=== PATIENT | female | born 1950 | race Caucasian/White ===

== ENCOUNTER → 2016-08-30 | Outpatient (CLI) | payer BC ==
[~2016-08-30] MED LIST: CHOL100027 PO; GABA-112 PO; TURM1CAP4 PO
[2016-08-30 10:17] LABS: BASO % 0.4 %; BASO ABS # 0.01 K/uL (0-0.2); COMPLETE YES; EOS % 4.7 %; HEMATOCRIT 38.4 % (37-47); LYMPH % 28.5 %; LYMPH ABS # 0.79 K/uL (1.2-3.4); MEAN CELL VOLUME 88.7 fL (80-100); MEAN CORPUSCULAR HEMOGLOBIN 29.3 pg (25-34); MEAN CORPUSCULAR HGB CONC 33.1 g/dl (32-36); MEAN PLATELET VOLUME 8.7 fL (7.4-10.4); MONO % 16.2 %; NEUT % 50.2 %; PLATELET COUNT 255 K/uL (130-400); RED BLOOD COUNT 4.33 M/uL (4.2-5.4); WHITE BLOOD COUNT 2.77 K/uL (4.8-10.8)
[2016-08-30 10:50] LABS: ESTIMATED AVERAGE GLUCOSE 114 mg/dl; HA1C FLAG Normal (Normal)
[2016-08-30 11:43] LABS: ALT/SGPT 39 U/L (12-78); AST/SGOT 36 U/L (15-37); BLOOD UREA NITROGEN 18 mg/dl (7-18); BUN/CREATININE RATIO 18.9 (10-20); CALCIUM 8.8 mg/dl (8.5-10.1); CARBON DIOXIDE 22 mmol/L (21-32); CHLORIDE 107 mmol/L (98-107); CREATININE 0.93 mg/dl (0.60-1.20); GLUCOSE 83 mg/dl (70-99); POTASSIUM 3.8 mmol/L (3.5-5.1); SODIUM 139 mmol/L (136-145)
[2016-08-30 11:54] LABS: ALB/GLOB RATIO 0.9 (0.9-2); ALKALINE PHOSPHATASE 117 U/L (45-117); CHOLESTEROL 140 mg/dl (0-200); CHOLESTEROL/HDL RATIO 1.9; HDL CHOLESTEROL 72 mg/dl; LDL CHOLESTEROL CALCULATED 59 mg/dl; TRIGLYCERIDES 44 mg/dl (0-150); VERY LOW DENSITY LIPOPROT CALC 9 mg/dl
[2016-08-30 12:15] LABS: URINE APPEARANCE CLEAR (CLEAR); URINE BILIRUBIN NEG (NEG); URINE COLOR YELLOW; URINE EPITHELIAL CELL AUTO 20-30 /lpf (0-5); URINE NITRITE NEG (NEG); URINE SPECIFIC GRAVITY 1.013 (1.000-1.030); UROBILINOGEN NEG (NEG); ZZUR CULT IF INDIC CLEAN CATCH NO
[2016-08-30 12:17] LABS: MANUAL MICROSCOPIC REQUIRED? NO; REVIEW REQ? NO
--- NOTE | 2016-09-03 13:28 | CODING QUERY MEDICAL NECESSITY ---
SUPPORTING DIAGNOSIS NEEDED A supporting diagnosis is required for the test/procedure performed on this patient in order for us to be reimbursed by the patient's insurance. Please provide a supporting diagnosis for the following test/procedure listed below next to the test name along with your signature. *If there is no additional diagnosis for this patient that would support the following test/procedure please document that below next to the test/procedure. Test(s)/Procedure(s) that require a supporting diagnosis: DS 08/30 * Hba1c DIAGNOSIS: * TSH DIAGNOSIS: Provider Signature: Date: Thank you Josie Holliday Health Information Management Once completed, please kindly fax back to [phone] For questions please call [phone]
== END | disposition home or self-care (01) ==
LOC: C.LAB1850 09:03
PROVIDERS: ATTEND Internal Medicine
DX: D72.819 Decreased white blood cell count, unspecified (principal); E55.9 Vitamin D deficiency, unspecified; K31.84 Gastroparesis; Z13.6 Encounter for screening for cardiovascular disorders

== ENCOUNTER → 2016-09-20 | Outpatient (CLI) | payer BC | END | disposition home or self-care (01) | LOC: C.MAMM 15:53 | PROVIDERS: ATTEND Internal Medicine | DX: Z78.0 Asymptomatic menopausal state (principal); M85.89 Other specified disorders of bone density and structure, multiple sites ==

== ENCOUNTER → 2016-09-22 | Outpatient (CLI) | payer BC ==
[2016-09-27 08:17] LABS: ALBUMIN 4.4 G/DL (3.8-4.8); ALBUMIN % 17.23 %; ALPHA-2-GLOBULIN % 25.69 %; BETA GLOBULIN % 23.03 %; CREATININE UR 28 MG/DL (20-320); GAMMA GLOBULIN 1.6 G/DL (0.8-1.7); MONOCLONAL PROTEIN BAND 1 0.5 G/DL (NOT DETECTED); TOTAL PROTEIN 7.6 G/DL (6.2-8.3)
== END | disposition home or self-care (01) ==
LOC: C.LABBC 10:19
PROVIDERS: ATTEND Internal Medicine
DX: R77.1 Abnormality of globulin (principal)

== ENCOUNTER → 2016-09-29 | Outpatient (CLI) | payer BC | END | disposition home or self-care (01) | LOC: C.LABBC 11:34 | PROVIDERS: ATTEND Internal Medicine | DX: R79.9 Abnormal finding of blood chemistry, unspecified (principal) ==

== ENCOUNTER → 2017-02-17 | Outpatient (CLI) | payer BC ==
--- NOTE | 2017-02-18 14:11 | MAMMOGRAPHY REPORT ---
BILATERAL DIGITAL SCREENING MAMMOGRAM WITH CAD: 02/17/2017 CLINICAL HISTORY: Routine screening. Patient has no complaints. TECHNIQUE: Current study was also evaluated with a Computer Aided Detection (CAD) system. Bilateral CC and MLO views were obtained. COMPARISON: Comparison is made to exams dated: 01/13/2016 mammogram, 01/02/2015 mammogram, 10/26/2013 ma mmogram, 10/24/2012 mammogram, 10/19/2011 mammogram, and 10/13/2010 mammogram - [facility] ter. BREAST COMPOSITION: The tissue of both breasts is heterogeneously dense, which may obscure small mas ses. FINDINGS: No suspicious masses, calcifications, or areas of architectural distortion are noted in ei ther breast. There has been no significant interval change compared to prior exams. IMPRESSION: ACR BI-RADS CATEGORY 1: NEGATIVE There is no mammographic evidence of malignancy. A 1 year screening mammogram is recommended. The pa tient will receive written notification of the results. Approximately 10% of breast cancers are not detected with mammography. A negative mammographic report should not delay biopsy if a clinically suggestive mass is present. Jo Ann Romero M.D. ah/:02/17/2017 15:37:04 [employer] Operator: Ashley HERRERA(Lani)(M), [facility] letter sent: Normal 1/2 BI-RADS Code: ACR BI-RADS Category 1: Negative
== END | disposition home or self-care (01) ==
LOC: C.MAMM 13:06
PROVIDERS: ATTEND Obstetrics & Gynecology
DX: Z12.31 Encounter for screening mammogram for malignant neoplasm of breast (principal)

== ENCOUNTER → 2017-04-21 | Outpatient (CLI) | payer BC | END | disposition home or self-care (01) | LOC: C.PAPS 09:30 | PROVIDERS: ATTEND Obstetrics & Gynecology | DX: Z01.419 Encounter for gynecological examination (general) (routine) without abnormal findings (principal) ==

== ENCOUNTER 2024-04-20 14:19 | Observation (INO) ==
--- NOTE | 2024-04-20 14:45 | Cardiology Consultation ---
Date of Consultation April 20, 2024 Assessment & Plan (1) Hyperbilirubinemia: (2) Transaminitis: (3) Paroxysmal A-fib: Plan Patient sent to ER due to elevated LFTs; elevated bilirubin. Recent possible viral illness, however viral panel was negative earlier this week. Recent diagnosis of PAF, converting to NSR on 04/16. Continue metoprolol 50 mg daily Currently NSR. It is very unlikely the metoprolol is causing her elevated LFT's. She has been on lower dose metoprolol for 3 months without issues. Continue Eliquis 5 mg BID Labs pending. Consider repeat imaging of her abdomen. GI consult recommended Further recommendations pending review of above test results. Case discussed with Dr. Decker I spent a total of 45 minutes on the date of service in preparation, delivery, and documentation of the care provided to this patient, excluding any time spent in the performance of separately billed services. Mercedes Kim PA-C Department of Cardiology, [facility] This chart was completed in part utilizing Speech Voice Recognition Software. Grammatical errors, random word insertions, pronoun errors, and incomplete sentences are an occasional consequence of this system due to software limitations, ambient noise, and hardware issues. Any formal questions or concerns about the content, text, or information contained within the body of this dictation should be directly addressed to the provider for clarification. Supervising Physician Co-Signing Physician Notes Attending attestation: Case reviewed with the advanced practitioner. I have personally performed a history and physical examination on the patient. I have reviewed the advanced practitioner's documentation on the date of service referenced in note, and I agree with, and take responsibility for the plan of care. Subjective:Since recent discharge, patient without prolonged palpitations. She has occasional sensation of irregular heartbeat consistent with her history of premature atrial contractions. EKG performed today confirms the presence of sinus rhythm. Patient without acute complaints, with noted viral illness earlier this week at the time of initial presentation 5 days ago. Exam: General appearance: No acute distress HEENT: Scleral icterus noted Cardiovascular regular rhythm, no murmurs Abdominal exam, nontender Data: EKG performed today reveals sinus rhythm at 72 bpm, corrected QT interval 413 ms, no significant repolarization abnormalities. Impression/ Plan: Abnormal liver function tests Recent diagnosis of paroxysmal atrial fibrillation -It is noted that the patient recently had surgical correction of a cystocele and rectocele performed by urogynecology on 03/23/2024. She describes having taken 975 mg of acetaminophen 3 times per day for approximately 10 days. Last week on Tuesday she took 650 mg of acetaminophen at bedtime. She denies significant alcohol use, and occasional glass of wine or cocktail. Although metoprolol can be indicated in drug-induced hepatitis. I would appear that her abnormal liver tests were present on presentation on 04/16/2024 before the escalation of her metoprolol dose. Would continue Eliquis unless invasive procedure planned. Perhaps her Acetaminophen use is the culprit. CT of the Abd/ pelvic unrevealing etiology of elevated LFTs. Case discussed by phone with Dr Mercedes of emergency medicine. I spent a total of 20 minutes coordinating, documenting, and providing care for this patient excluding time spent in the performance of separately billed services or time spent by another provider. Joel Decker DO History of Present Illness Reason for Consultation: PAF; Palpitations Requesting Physician: ER Attending Physician: Dr. Decker History of Present Illness Patient is a 74 year old female sent to [facility] for elevated liver enzymes. Known to [facility] Cardiology - Josefina Carrasco PA-C Patient evaluated in the ER earlier this week with complaints of flu like symptoms, palpitations. Diagnosed with atrial fibrillation RVR and spontaneously converted to NSR, without conversion pause. Started on Eliquis 5 mg BID. Potassium and magnesium were low and supplemented. Patient had elevated LFT's during ER evaluation. Viral panel negative. Hepatitis evaluation unremarkable. Liver US was negative. Metoprolol increased to 50 mg daily to aid with arrhythmias. Repet LFT's yesterday demonstrated Total Bilirubin of 7.8, AST 63, ALT 128 and Alk phos of 324. For this reason, she was sent back to the ER for evaluation. She notes persistent nausea this week. Water stools at times. No abdominal pain. No chest pain or dyspnea. Rare palpitations. Currently in NSR on EKG Cardiac History includes: Sensed atrial and ventricular ectopy Frequent atrial ectopy, 7.1% burden via February 2024 ambulatory EKG Asymptomatic supraventricular tachycardia New onset atrial fibrillation with rapid ventricular response April 15, 2024 [id number] Score 3 points Hyponatremia, followed by [facility] Allergies Allergy/AdvReac Type Severity Reaction Status Date / Time No Known Drug Allergies Allergy Verified 10/26/23 13:42 Home Medications Medication Instructions Recorded Confirmed Type turmeric 1 cap PO DAILY 06/22/21 04/16/24 History calcium carbonate 1,000 mg PO DAILY 08/04/21 04/16/24 History estradiol 0.01% (0.1 mg/gram) 1 g vaginal 2XWK #42.5 grams 10/17/23 04/16/24 Rx vaginal cream tretinoin 1 applic topical DIRECTED PRN 10/26/23 04/16/24 History Other gabapentin 400 mg capsule 400 mg PO HS #30 caps 03/09/24 04/16/24 Rx Women's 50 Plus Multivitamin 1 tab PO DAILY 04/16/24 04/16/24 History apixaban 5 mg tablet (Eliquis) 5 mg PO BID #60 tabs 04/16/24 Rx gabapentin 100 mg capsule 100 mg PO HS 04/16/24 04/16/24 History metoprolol succinate 25 mg 37.5 mg PO DAILY 04/16/24 04/16/24 History tablet,extended release 24 hr metoprolol succinate 50 mg 50 mg PO QAM 30 days #30 tabs 04/16/24 Rx tablet,extended release 24 hr minoxidil 2.5 mg tablet 1.25 mg PO DAILY 04/16/24 04/16/24 History Patient History Medical History Melanoma Bilateral tinnitus Dermatitis, nummular History of angular cheilitis Onychomycosis of toenail Sensorineural hearing loss (SNHL) of both ears Small bowel obstruction (2015) Pneumonia (2014) Surgical History Hx of colonoscopy Hx of tonsillectomy 1955 Family History Father Suicide Mother Parkinsons disease Uterine cancer Dementia Cervix cancer FHx: allergies Brother Myocardial infarction Tobacco abuse Coronary heart disease Heart disease Sister Coronary heart disease Heart disease Uncle Heart disease Denies family history of Ovarian cancer Prostate cancer Breast cancer Colorectal cancer Social History Smoking Status: Never smoker Second Hand Exposure: No; Do You Dip or Chew Tobacco: No; Hx Alcohol Use: Yes Alcohol type: beer, wine and hard liquor Alcohol Intake Frequency: 4 or More x per/Week Alcohol Intake Frequency Comment: glass of wine daily or cocktail Hx Substance Use: No Preferred Language: Nepali Communication Ability: Effective Visual Impairment: No Limitations Hearing Ability: Normal Beliefs That Will Affect Care: None marital status: Current Living Situation: Spouse current occupational status: retired 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 How many Children do You have: 4 Feels Safe at Home: Yes Childhood Exposure to Second-Hand Smoke: Yes Diet: regular caffeine: Yes during the past year weight has: remained stable Dental Care, Regularly: Yes Physical Activity Frequency: Daily Seatbelt Use: always Sunscreen Use: Yes Review of Systems Review of Systems: All systems reviewed & are unremarkable except as noted in HPI & below Physical Exam Constitutional: WD/WN, vitals as above Eyes: + Scleral icterus Respiratory: normal respiratory effort, lungs clear to auscultation Cardiovascular: RRR, no murmur, no edema Gastrointestinal (Abdomen): normal bowel sounds, soft, nontender, no hepatosplenomegaly Skin: no rashes, warm and dry Neurologic: PERRL, EOMI, accommodation nl, no face palsy, no dysarthria Results & Data Vital Signs (Past 12 Hours) Vital Signs Temp Pulse Resp BP Pulse Ox 04/20/24 14:19 36.6 C 78 18 157/95 H 99 Laboratory Results Labs pending at time of consult Intake and Output 04/19/24 04/20/24 04/20/24 22:59 06:59 14:59 Other: Weight 56 kg Weight Measurement Method Chair Scale Patient Weight 04/21/24 06:59 Weight 56 kg Diagnostic Findings EKG reviewed: NSR, mild T wave inversion in inferior leads Prior data reviewed: Echo report reviewed from 04/16/24: NSR was present during echo Normal LV wall thickness No regional wall motion abnormalities LV systolic function is normal EF 55-60% RV is normal in size Mild TR No pulm hypertension Liver US report reviewed dated 04/16/24: IMPRESSION: Unremarkable right upper quadrant ultrasound. Chest xray report reviewed dated 04/16/24: IMPRESSION: No acute process. EKG reviewed from 04/16: Atrial fibrillation with RVR at 134 bmp T wave abnormality in lateral leads Medications Administered Medications turmeric 1 cap PO DAILY 06/22/21 [History Confirmed 04/16/24] calcium carbonate 1,000 mg PO DAILY 08/04/21 [History Confirmed 04/16/24] estradiol 0.01% (0.1 mg/gram) vaginal cream 1 g vaginal 2XWK #42.5 grams 10/17/23 [Rx Confirmed 04/16/24] tretinoin 1 applic topical DIRECTED PRN Other 10/26/23 [History Confirmed 04/16/24] gabapentin 400 mg capsule 400 mg PO HS #30 caps 03/09/24 [Rx Confirmed 04/16/24] Women's 50 Plus Multivitamin 1 tab PO DAILY 04/16/24 [History Confirmed 04/16/24] apixaban 5 mg tablet (Eliquis) 5 mg PO BID #60 tabs 04/16/24 [Rx] gabapentin 100 mg capsule 100 mg PO HS 04/16/24 [History Confirmed 04/16/24] metoprolol succinate 25 mg tablet,extended release 24 hr 37.5 mg PO DAILY 04/16/24 [History Confirmed 04/16/24] metoprolol succinate 50 mg tablet,extended release 24 hr 50 mg PO QAM 30 days #30 tabs 04/16/24 [Rx] minoxidil 2.5 mg tablet 1.25 mg PO DAILY 04/16/24 [History Confirmed 04/16/24]
[2024-04-20 15:48] LABS: Basophils # (auto) 0.04 K/uL (0.00-0.20); Basophils % (auto) 0.6 %; Eosinophils # (auto) 0.16 K/uL (0.00-0.50); Eosinophils % (auto) 2.3 %; Hematocrit (blood only) 38.3 % (37.0-47.0); Hemoglobin 13.2 g/dl (12.0-16.0); Immature Granulocytes # (auto) 0.02 K/uL (0.01-0.20); Immature Granulocytes % (auto) 0.3 %; Lymphocytes % (auto) 10.2 %; Mean Corpuscular Hemoglobin 31.3 pg (25.0-34.0); Mean Corpuscular Hgb Conc 34.5 g/dL (32.0-36.0); Mean Corpuscular Volume 90.8 fL (80.0-100.0); Mean Platelet Volume 9.1 fL (9.4-12.4); Monocytes # (auto) 0.67 K/uL (0.11-0.59); Monocytes % (auto) 9.8 %; Neutrophils # (auto) 5.27 K/uL (1.40-6.50); Neutrophils % (auto) 76.8 %; Platelet Count 358 K/uL (130-400); RDW Coefficient of Variation 14.2 % (11.5-14.5); RDW Standard Deviation 47.3 fL (36.4-46.3); Red Blood Count 4.22 M/uL (4.20-5.40); White Blood Count 6.86 K/ul (4.8-10.8)
--- NOTE | 2024-04-20 16:02 | Emergency Department Note ---
Impression & Plan Elevated bilirubin, Transaminitis ED Provider Note NAME: CHICHO GIPSON AGE: 74 SEX: F : 1950 ARRIVES VIA: Walk-In INFORMANT: Patient ED PROVIDER(S): Jason Mercedes DO CHIEF COMPLAINT: Jaundice HPI: Patient is a 74-year-old female with a past medical history of A-fib, SVT who presents to the ER for elevated bilirubin which has trending up. Patient notes that she was seen here last week for A-fib. She was discharged and since then she has been having itching and she feels as though she is getting more yellow. She was consequently sent in. She denies any headache or change in vision. No chest pain or shortness of breath. No nausea, vomiting, or diarrhea. No dysuria, urgency, or frequency. No other exacerbating or remitting factors. ADDITIONAL HISTORY OBTAINED: Per HPI Chronic Medical/Social Conditions Affecting Care: Per HPI PAST MEDICAL HISTORY:See Below PAST SURGICAL HISTORY:See Below FAMILY HISTORY:See Below SOCIAL HISTORY:See Below HOME MEDICATIONS:See Below ALLERGIES:See Below VITALS:See Below PHYSICAL EXAMINATION: GENERAL: Sitting up in bed, alert, well appearing, well nourished, no distress, non-toxic EYE EXAM: Scleral icterus OROPHARYNX: no exudate, no erythema, lips, buccal mucosa, and tongue normal and mucous membranes are moist NECK: supple, no nuchal rigidity, no adenopathy, non-tender LUNGS: Clear to auscultation. Normal chest wall mechanics HEART: no murmurs, S1 normal and S2 normal ABDOMEN: abdomen soft, non-tender, normo-active bowel sounds, no masses, no rebound or guarding. BACK: Back is symmetrical on inspection and there is no deformity, no midline tenderness, no CVA tenderness. SKIN: Jaundice UPPER EXTREMITIES: upper extremities are grossly normal. LOWER EXTREMITIES: No pitting edema. NEURO EXAM: Normal sensorium, cranial nerves II-XII grossly intact, normal speech, no gross weakness of arms, no gross weakness of legs. MEDICAL DECISION MAKING: Patient is a 74-year-old female who presents ER for elevated bilirubin. IV was established and blood work was obtained. Labs show no significant leukocytosis or anemia. INR unremarkable. BMP along with LFTs with slightly elevated at 60- 1 15. T. bili at 7.5. Acetaminophen was negative. She was taken 965 3 times a day for 2 weeks in mid March. She has not taken any since then. CT abdomen pelvis showed no acute pathology. Patient was given IV fluids. Discussed the case with the hospitalist as well as Dr. Willson from cardiology as he feels this is not caused by metoprolol and I agree. Do favor this likely viral in nature. Hepatitis panel pending. Discussed case with the hospitalist for further evaluation management treatment. Consults/Care Managements Discussions: Per MDM Triage Nursing notes reviewed. Limited review of prior medical records performed Vital Signs: reviewed and remarkable for HTN Differential diagnosis: Differential diagnoses includes but is not limited to gastritis, peptic ulcer disease, GERD, gallbladder disease, pancreatitis, small bowel obstruction, appendicitis, diverticulitis, hernia, urinary tract infection, torsion, perforation, trauma, infectious. ER treatment provided: See below Diagnostics interpreted by me include EKG and cardiac monitoring as listed below: -Cardiac Monitoring: An order was placed for continuous cardiac monitoring. The monitor shows a rate of 80 with sinus rhythm. -ECG: Sinus rhythm rate of 72 Normal axis No PVCs QTc 413 -Laboratory studies:Interpreted by me as stated above in MDM and shown below. Imaging studies: Xrays: As interpreted by me:none CTs show: CT head and pelvis per my preliminary to rotation showed no obvious bowel obstruction CT head and pelvis per radiology showed no acute pathology Procedures:none Critical Care: None Past Med/Surg History Problem List (Updated 04/20/24 @ 21:47 by Jason Mercedes DO) Transaminitis (Acute) Elevated bilirubin (Acute) Acute hyponatremia (Acute) Hyperbilirubinemia (Acute) Transaminitis (Acute) Atrial fibrillation with rapid ventricular response (Acute) Hypertension Family history of ischemic heart disease Premature atrial contractions SVT (supraventricular tachycardia) New onset atrial fibrillation Transaminitis Paroxysmal A-fib Left knee DJD Talus fracture Navicular fracture of ankle Ulceration, tongue traumatic Aphthous ulcer of tongue Back problem Waldenstrom macroglobulinemia (Acute) Vitamin D deficiency (Acute) Uterovaginal prolapse (Acute) Urethral caruncle (Acute) Scoliosis (Acute) Prolapse of female pelvic organs (Acute) 3 1/4"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 Postmenopausal atrophic vaginitis (Acute) Peripheral neuropathy (Acute) Osteopenia (Acute) Lumbar stenosis (Chronic) L5-6 Leukopenia (Acute) Lentigo maligna (melanoma in situ) of cheek (Acute 1999) Hyponatremia (Acute) Gastroparesis (Acute) Disc degeneration, lumbar (Acute) Depression (Acute) Cystocele, midline (Acute) 3 1/4" 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 Cervical radiculopathy at C6 (Acute) Greater trochanteric bursitis SI (sacroiliac) joint dysfunction Gluteal pain Biceps tendinitis Wrist tendonitis Osteoarthritis of wrist Trigger finger Irritable bowel syndrome with constipation Medical History Melanoma Bilateral tinnitus Dermatitis, nummular History of angular cheilitis Onychomycosis of toenail Sensorineural hearing loss (SNHL) of both ears Small bowel obstruction (2015) Pneumonia (2014) Surgical History Hx of colonoscopy Hx of tonsillectomy 1955 Family History Father Suicide Mother Parkinsons disease Uterine cancer Dementia Cervix cancer FHx: allergies Brother Myocardial infarction Tobacco abuse Coronary heart disease Heart disease Sister Coronary heart disease Heart disease Uncle Heart disease Denies family history of Ovarian cancer Prostate cancer Breast cancer Colorectal cancer Social History Smoking Status: Never smoker Second Hand Exposure: No; Do You Dip or Chew Tobacco: No; Hx Alcohol Use: Yes Alcohol type: beer, wine and hard liquor Alcohol Intake Frequency: 4 or More x per/Week Alcohol Intake Frequency Comment: glass of wine daily or cocktail Hx Substance Use: No Preferred Language: Upper Sorbian Communication Ability: Effective Visual Impairment: No Limitations Hearing Ability: Normal Beliefs That Will Affect Care: None marital status: Current Living Situation: Spouse current occupational status: retired 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 How many Children do You have: 4 Feels Safe at Home: Yes Childhood Exposure to Second-Hand Smoke: Yes Diet: regular caffeine: Yes during the past year weight has: remained stable Dental Care, Regularly: Yes Physical Activity Frequency: Daily Seatbelt Use: always Sunscreen Use: Yes Allergies Allergies Allergy/AdvReac Type Severity Reaction Status Date / Time No Known Drug Allergies Allergy Verified 04/20/24 18:20 Home Meds Home Medications Medication Instructions Recorded Confirmed calcium carbonate 1,000 mg PO DAILY 08/04/21 04/20/24 gabapentin 100 mg capsule 100 mg PO UD 04/16/24 04/20/24 [id number] ac 400 1 tab PO DAILY ##0 04/16/24 04/20/24 mcg-calcium carb 500 mg-vit K1 20 mcg tablet (Women's 50 Plus Multivitamin) gabapentin 400 mg capsule 400 mg PO UD 04/20/24 04/20/24 Previous Rx's Medication Instructions Recorded apixaban 5 mg tablet (Eliquis) 5 mg PO BID #60 tabs 04/16/24 metoprolol succinate 50 mg 50 mg PO QAM 30 days #30 tabs 04/16/24 tablet,extended release 24 hr Results & Data (ED) Vital Signs Vital Signs - 24 hr 04/20/24 14:19 04/20/24 20:29 04/20/24 21:18 Temperature 36.6 C Temperature Source Temporal Artery Scan Pulse Rate 78 Pulse Rate [Finger] 79 84 Respiratory Rate 18 16 16 Blood Pressure 157/95 H Blood Pressure [Right Arm] 148/86 H 127/82 Blood Pressure Mean 115 Blood Pressure Mean [Right Arm] 106 97 Blood Pressure Position [Right Arm] Sitting Semi-fowlers Pulse Oximetry 99 97 98 Oxygen Delivery Method Room Air Room Air Sepsis Recent Fever Within 48 Hours No Sepsis New/Unexplained Change in Mental Status N/A Sepsis Action Taken by Nursing No Action Required Laboratory Data 04/20/24 15:14 04/20/24 15:14 Lab Results 04/20/24 04/20/24 04/20/24 Range/Units 15:14 15:16 19:27 WBC 6.86 (4.8-10.8) K/ul RBC 4.22 (4.20-5.40) M/uL Hgb 13.2 (12.0-16.0) g/dl Hct 38.3 (37.0-47.0) % MCV 90.8 (80.0-100.0) fL MCH 31.3 (25.0-34.0) pg MCHC 34.5 (32.0-36.0) g/dL RDW Std Deviation 47.3 H (36.4-46.3) fL RDW Coeff of Kerri 14.2 (11.5-14.5) % Plt Count 358 (130-400) K/uL MPV 9.1 L (9.4-12.4) fL Immature Gran % (Auto) 0.3 % Neut % (Auto) 76.8 % Lymph % (Auto) 10.2 % Mariposa % (Auto) 9.8 % Eos % (Auto) 2.3 % Baso % (Auto) 0.6 % Neut # (Auto) 5.27 (1.40-6.50) K/uL Lymph # (Auto) 0.70 L (1.20-3.40) K/uL Mariposa # (Auto) 0.67 H (0.11-0.59) K/uL Eos # (Auto) 0.16 (0.00-0.50) K/uL Baso # (Auto) 0.04 (0.00-0.20) K/uL Immature Gran # (Auto) 0.02 (0.01-0.20) K/uL PT 9.9 (9.0-12.0) Seconds INR 0.9 (0.9-1.1) Sodium 135 L (136-145) mmol/L Potassium 3.6 (3.5-5.1) mmol/L Chloride 103 (98-107) mmol/L Carbon Dioxide 22 (21-32) mmol/L Anion Gap 10 (3-11) BUN 17 (6-23) mg/dl Creatinine 0.72 (0.6-1.2) mg/dl Est Cr Clr Drug Dosing 60.6 ml/min eGFR 87.68 BUN/Creatinine Ratio 23.6 H (10-20) Glucose 102 H (70-99(Fasting)) mg/dl Calcium 9.9 (8.6-10.3) mg/dl Total Bilirubin 7.5 H (0.2-1.0) mg/dl Direct Bilirubin 5.0 H (0-0.2) mg/dl AST 60 H (13-39) U/L ALT 115 H (7-52) U/L Alkaline Phosphatase 309 H (34-104) U/L Total Protein 7.9 (6.0-8.3) gm/dl Albumin 4.3 (3.4-5.0) gm/dl Globulin 3.6 (2.5-4.0) gm/dl Albumin/Globulin Ratio 1.2 (0.9-2) Acetaminophen < 3 L (10-30) ug/ml Hep Bs Antigen Negative (Negative) Hepatitis C Antibody Negative (Negative) Monoscreen Negative (Negative) Administered Medications Discontinued Medications Ioversol (Optiray 320 100ml) 91 ml IV ONCE ONE Stop: 04/20/24 16:09 Last Admin: 04/20/24 16:08 Dose: 91 ml Documented By: GUY Imaging Data Radiologist's Impression: Abdomen/Pelvis CT 04/20/24 16:00 EXAM: CT Abdomen and Pelvis With Intravenous Contrast INDICATION: Jaundice. TECHNIQUE: Axial computed tomography images of the abdomen and pelvis with intravenous contrast. Sagittal and coronal reformatted images were created and reviewed. This CT exam was performed using one or more of the following dose reduction techniques: automated exposure control, adjustment of the mA and/or kV according to patient size, and/or use of iterative reconstruction technique. CONTRAST: 81ml of Optiray 320 was administered intravenously. COMPARISON: 09/18/2015 FINDINGS: Limitations: None. Lung bases: No abnormality noted. Pleural space: No visualized pleural effusion or pneumothorax. Heart: No abnormality noted. Mediastinum: No abnormality noted. ABDOMEN: Liver: No abnormality noted. Gallbladder and bile ducts: Pression no biliary dilatation noted. Pancreas: Homogeneous enhancement. No mass, inflammation or ductal dilation. Spleen: No significant abnormality noted. Adrenals: No significant abnormality noted. Kidneys and ureters: Normal enhancement. No mass, hydronephrosis or visualized stone. Stomach and bowel: Moderate amounts of stool throughout the colon. Mildly prominent small bowel loops noted in the left abdomen. No distention or evident obstructing point. No segmental thickening or inflammatory process noted. PELVIS: Appendix: Well seen and appears normal. Bladder: No filling defects to suggest mass or large stone. No inflammation. Reproductive: No abnormalities noted. ABDOMEN and PELVIS: Intraperitoneal space: Trace ascitic fluid identified in the bilateral gutters and upper quadrants similar to the prior. There is no abscess. No free air. Bones/joints: Degenerative changes noted throughout the spine. No acute osseous abnormality seen. Soft tissues: No significant abnormality noted. Vasculature: No abdominal aortic aneurysm. Lymph nodes: No pathologically enlarged lymph nodes. IMPRESSION: There are some prominent small bowel loops in the left abdomen without evident obstruction, thickening or inflammatory process. ACT 112: Negative or not required by law. Electronically signed by Kylie Slater 04-20-2024 4:35 PM Discharge Plan Visit Data Chief Complaint: Referred by Doctor Stated Complaint: LIVER ENZYMES VERY HIGH ED Provider: Jason Mercedes Discharge Problem: Elevated bilirubin, Transaminitis Patient Disposition: Admitted As Inpatient Discharge Instructions Interventions: ED Discharge Assessment Last Done: 04/20/24 21:19 Forms Stand Alone Forms: Carnival Prescriptions Prescriptions: No Action calcium carbonate 500 mg calcium (1,250 mg) tablet 1,000 mg PO DAILY gabapentin 100 mg capsule 100 mg PO UD Rx Instructions: Take 100mg w/ 400mg to equal 500mg at bedtime Women's 50 Plus Multivitamin 400 mcg-500 mg calcium-20 mcg Tablet 1 tab PO DAILY Qty: 0 Eliquis 5 mg tablet 5 mg PO BID Qty: 60 0RF metoprolol succinate 50 mg Tablet Extended Release 24 Hr 50 mg PO QAM 30 Days Qty: 30 0RF gabapentin 400 mg capsule 400 mg PO UD Rx Instructions: Take 400mg w/ 100mg to equal 500mg at bedtime Referrals Referrals: Sancho Jones MD [Primary Care Provider] -
[2024-04-20 16:06] LABS: Albumin Globulin Ratio 1.2 (0.9-2); Albumin Level 4.3 gm/dl (3.4-5.0); BUN Creatinine Ratio 23.6 (10-20); Bilirubin,Total 7.5 mg/dl (0.2-1.0); Calcium 9.9 mg/dl (8.6-10.3); Creatinine Clr Calc Pharmacy 60.6 ml/min; Globulin 3.6 gm/dl (2.5-4.0); Potassium 3.6 mmol/L (3.5-5.1); Total Protein 7.9 gm/dl (6.0-8.3)
[2024-04-20] MEDS: OPTIRAY 320 100ml IV ONE (16:08)
[2024-04-20 16:29] LABS: INR 0.9 (0.9-1.1); Prothrombin Time 9.9 Seconds (9.0-12.0)
--- NOTE | 2024-04-20 16:36 | CT Scan Report ---
EXAM: CT Abdomen and Pelvis With Intravenous Contrast INDICATION: Jaundice. TECHNIQUE: Axial computed tomography images of the abdomen and pelvis with intravenous contrast. Sagittal and coronal reformatted images were created and reviewed. This CT exam was performed using one or more of the following dose reduction techniques: automated exposure control, adjustment of the mA and/or kV according to patient size, and/or use of iterative reconstruction technique. CONTRAST: 81ml of Optiray 320 was administered intravenously. COMPARISON: 09/18/2015 FINDINGS: Limitations: None. Lung bases: No abnormality noted. Pleural space: No visualized pleural effusion or pneumothorax. Heart: No abnormality noted. Mediastinum: No abnormality noted. ABDOMEN: Liver: No abnormality noted. Gallbladder and bile ducts: Pression no biliary dilatation noted. Pancreas: Homogeneous enhancement. No mass, inflammation or ductal dilation. Spleen: No significant abnormality noted. Adrenals: No significant abnormality noted. Kidneys and ureters: Normal enhancement. No mass, hydronephrosis or visualized stone. Stomach and bowel: Moderate amounts of stool throughout the colon. Mildly prominent small bowel loops noted in the left abdomen. No distention or evident obstructing point. No segmental thickening or inflammatory process noted. PELVIS: Appendix: Well seen and appears normal. Bladder: No filling defects to suggest mass or large stone. No inflammation. Reproductive: No abnormalities noted. ABDOMEN and PELVIS: Intraperitoneal space: Trace ascitic fluid identified in the bilateral gutters and upper quadrants similar to the prior. There is no abscess. No free air. Bones/joints: Degenerative changes noted throughout the spine. No acute osseous abnormality seen. Soft tissues: No significant abnormality noted. Vasculature: No abdominal aortic aneurysm. Lymph nodes: No pathologically enlarged lymph nodes. IMPRESSION: There are some prominent small bowel loops in the left abdomen without evident obstruction, thickening or inflammatory process. ACT 112: Negative or not required by law. Electronically signed by Kylie Slater 04-20-2024 4:35 PM
[2024-04-20 16:39] LABS: Hep B Surface Ag with confirm Negative (Negative)
[2024-04-20 16:44] LABS: Hep C Ab Rflx HepCQuant RNA Negative (Negative)
--- NOTE | 2024-04-20 20:06 | History & Physical Report ---
Date of Service April 20, 2024 Assessment & Plan (1) Hyperbilirubinemia: Plan: Suspect most likely viral etiology. Patient is well appearing without abdominal pain and both US and CT without concerning obstructive etiology despite pattern more biliary than intrahepatic appearing No anemia to suggest hemolysis Doubtful with the doses of acetaminophen she took this is the cause INR and Plt normal Will repeat levels in AM to make sure stable and consult gastroenterology given no definitive etiology to make sure nothing is being missed Reflex EBV and CMV sent (2) Transaminitis: Plan: As above (3) Paroxysmal A-fib: Plan: Currently in NSR Continue metoprolol and Eliquis Plan VTE Prophylaxis - Eliquis Diet - regular Disposition - admit to med/surg Admission and Anticipated Discharge Date Admission Date: April 20, 2024 History of Present Illness Chief Complaint: Elevated LFTs Primary Care Provider: Sancho Jones MD Lien Marie is a 74 year old female who presents to the ER on advice of her poising inspector due to elevated LFTs. She reports having a generalized respiratory illness starting on Tuesday (April 14) night with body aching, nasal congestion and sneezing. No chest pain, sore throat or shortness of breath. She was seen in the ER on April 16 and diagnosed with new onset paroxysmal atrial fibrillation and converted to NSR while in the ER with metoprolol IV. She was noted to have a mild transaminitis but since since she had not abdominal pain, US was normal and downtrending in the ER and acute hepatitis panel was sent but medicine did not feel she needed to be admitted at that time. She followed up with her poising inspector today with repeat LFTs that appeared to be worse therefore she was sent to the ER for further evaluation. She has stopped taking acetaminophen with last dose on April 14. Before this she was taking 3000mg / day after her operation in March up until about April 11. She is now feeling better from her flu like symptoms and is asymptomatic when seen in the ER other than yellowing of her skin and associated itching from the hyperbilirubinemia. She has no known prior liver problems. Allergies Allergy/AdvReac Type Severity Reaction Status Date / Time No Known Drug Allergies Allergy Verified 04/20/24 18:20 Home Medications Medication Instructions Recorded Confirmed Type calcium carbonate 1,000 mg PO DAILY 08/04/21 04/20/24 History apixaban 5 mg tablet (Eliquis) 5 mg PO BID #60 tabs 04/16/24 04/20/24 Rx gabapentin 100 mg capsule 100 mg PO UD 04/16/24 04/20/24 History metoprolol succinate 50 mg 50 mg PO QAM 30 days #30 tabs 04/16/24 04/20/24 Rx tablet,extended release 24 hr [id number]-[id number] ac 400 1 tab PO DAILY ##0 04/16/24 04/20/24 History mcg-calcium carb 500 mg-vit K1 20 mcg tablet (Women's 50 Plus Multivitamin) gabapentin 400 mg capsule 400 mg PO UD 04/20/24 04/20/24 History Past Med/Surg History Problem List (Updated 04/20/24 @ 21:47 by Jason Mercedes DO) Transaminitis (Acute) Elevated bilirubin (Acute) Acute hyponatremia (Acute) Hyperbilirubinemia (Acute) Transaminitis (Acute) Atrial fibrillation with rapid ventricular response (Acute) Hypertension Family history of ischemic heart disease Premature atrial contractions SVT (supraventricular tachycardia) New onset atrial fibrillation Transaminitis Paroxysmal A-fib Left knee DJD Talus fracture Navicular fracture of ankle Ulceration, tongue traumatic Aphthous ulcer of tongue Back problem Waldenstrom macroglobulinemia (Acute) Vitamin D deficiency (Acute) Uterovaginal prolapse (Acute) Urethral caruncle (Acute) Scoliosis (Acute) Prolapse of female pelvic organs (Acute) 3 1/4"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 Postmenopausal atrophic vaginitis (Acute) Peripheral neuropathy (Acute) Osteopenia (Acute) Lumbar stenosis (Chronic) L5-6 Leukopenia (Acute) Lentigo maligna (melanoma in situ) of cheek (Acute 1999) Hyponatremia (Acute) Gastroparesis (Acute) Disc degeneration, lumbar (Acute) Depression (Acute) Cystocele, midline (Acute) 3 1/4" 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 Cervical radiculopathy at C6 (Acute) Greater trochanteric bursitis SI (sacroiliac) joint dysfunction Gluteal pain Biceps tendinitis Wrist tendonitis Osteoarthritis of wrist Trigger finger Irritable bowel syndrome with constipation Medical History Melanoma Bilateral tinnitus Dermatitis, nummular History of angular cheilitis Onychomycosis of toenail Sensorineural hearing loss (SNHL) of both ears Small bowel obstruction (2016) Pneumonia (2015) Surgical History Hx of colonoscopy Hx of tonsillectomy 1955 Family History Father Suicide Mother Parkinsons disease Uterine cancer Dementia Cervix cancer FHx: allergies Brother Myocardial infarction Tobacco abuse Coronary heart disease Heart disease Sister Coronary heart disease Heart disease Uncle Heart disease Denies family history of Ovarian cancer Prostate cancer Breast cancer Colorectal cancer Social History Smoking Status: Never smoker Second Hand Exposure: No; Do You Dip or Chew Tobacco: No; Tobacco Cessation Education Requested by Patient: No Hx Alcohol Use: Yes Alcohol type: beer and wine Alcohol Intake Frequency: 4 or More x per/Week Alcohol Intake Frequency Comment: glass of wine daily or cocktail Hx Substance Use: No Preferred Language: Nepali Communication Ability: Effective Visual Impairment: No Limitations Hearing Ability: Normal Milieu Therapist Required: No Beliefs That Will Affect Care: None marital status: Current Living Situation: Spouse current occupational status: retired 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 How many Children do You have: 4 Other Information That Helps Us Care for You: No Feels Safe at Home: Yes Safety Concerns: Feels Safe At This Time Childhood Exposure to Second-Hand Smoke: Yes Diet: regular caffeine: Yes during the past year weight has: remained stable Dental Care, Regularly: Yes Physical Activity Frequency: Daily Seatbelt Use: always Sunscreen Use: Yes Review of Systems Review of Systems: All systems reviewed & are unremarkable except as noted in HPI & below Physical Exam Constitutional: WD/WN, vitals as above Eyes: sclerae not anicteric ENMT: external ear and nose normal, oropharynx normal Respiratory: normal respiratory effort, lungs clear to auscultation Cardiovascular: RRR, no murmur, no edema Gastrointestinal (Abdomen): normal bowel sounds, soft, nontender, no hepatosplenomegaly Musculoskeletal: no cyanosis or clubbing, extremities motor strength 5/5 Skin: + jaundice Neurologic: moves all extremities and awake; not confused Psychiatric: A+Ox3, euthymic affect Genitourinary: no CVA tenderness Results & Data Results & Data Vital Signs (Past 12 Hours) Vital Signs Temp Pulse Resp BP Pulse Ox 04/20/24 14:19 36.6 C 78 18 157/95 H 99 Laboratory Results Abnormal lab results 04/20/24 04/20/24 Range/Units 15:14 15:16 RDW Std Deviation 47.3 H (36.4-46.3) fL MPV 9.1 L (9.4-12.4) fL Lymph # (Auto) 0.70 L (1.20-3.40) K/uL [place] # (Auto) 0.67 H (0.11-0.59) K/uL Sodium 135 L (136-145) mmol/L BUN/Creatinine Ratio 23.6 H (10-20) Glucose 102 H (70-99(Fasting)) mg/dl Total Bilirubin 7.5 H (0.2-1.0) mg/dl Direct Bilirubin 5.0 H (0-0.2) mg/dl AST 60 H (13-39) U/L ALT 115 H (7-52) U/L Alkaline Phosphatase 309 H (34-104) U/L Acetaminophen < 3 L (10-30) ug/ml Diagnostic Findings CT Abdomen and Pelvis With Intravenous Contrast INDICATION: Jaundice. TECHNIQUE: Axial computed tomography images of the abdomen and pelvis with intravenous contrast. Sagittal and coronal reformatted images were created and reviewed. This CT exam was performed using one or more of the following dose reduction techniques: automated exposure control, adjustment of the mA and/or kV according to patient size, and/or use of iterative reconstruction technique. CONTRAST: 81ml of Optiray 320 was administered intravenously. COMPARISON: 09/18/2015 FINDINGS: Limitations: None. Lung bases: No abnormality noted. Pleural space: No visualized pleural effusion or pneumothorax. Heart: No abnormality noted. Mediastinum: No abnormality noted. ABDOMEN: Liver: No abnormality noted. Gallbladder and bile ducts: Pression no biliary dilatation noted. Pancreas: Homogeneous enhancement. No mass, inflammation or ductal dilation. Spleen: No significant abnormality noted. Adrenals: No significant abnormality noted. Kidneys and ureters: Normal enhancement. No mass, hydronephrosis or visualized stone. Stomach and bowel: Moderate amounts of stool throughout the colon. Mildly prominent small bowel loops noted in the left abdomen. No distention or evident obstructing point. No segmental thickening or inflammatory process noted. PELVIS: Appendix: Well seen and appears normal. Bladder: No filling defects to suggest mass or large stone. No inflammation. Reproductive: No abnormalities noted. ABDOMEN and PELVIS: Intraperitoneal space: Trace ascitic fluid identified in the bilateral gutters and upper quadrants similar to the prior. There is no abscess. No free air. Bones/joints: Degenerative changes noted throughout the spine. No acute osseous abnormality seen. Soft tissues: No significant abnormality noted. Vasculature: No abdominal aortic aneurysm. Lymph nodes: No pathologically enlarged lymph nodes. IMPRESSION: There are some prominent small bowel loops in the left abdomen without evident obstruction, thickening or inflammatory process. Medications Administered ER Medications Given: None ECG Rate (beats per minute): 72 Rhythm: normal sinus Findings: + nonspecific-ST abn Comparison ECG Date: from (April 16, 2024) Change: the following changes noted (ST no longer depressed in anterior leads, NSR replaced a. fib) Code Status & VTE Plan Code Status Full VTE Prophylaxis Plan VTE Prophylaxis will be ordered: Yes PG Care Time/CCT Total # of Minutes Spent Total Time Spent with Patient: Total time spent is greater than 50% in coordination of care (as documented) at patient's floor/unit and/or counseling patient: Coding Level of Care Code 09531 INT INP/OBS CARE 2/55MIN Diagnoses Hyperbilirubinemia E80.6 Transaminitis R74.01 Paroxysmal A-fib I48.0
[2024-04-20 20:30] VITALS: RESP 16
[2024-04-20 22:24] VITALS: O2SAT 96
[2024-04-20] MEDS: GABAPENTIN 100 MG CAP PO SCH (22:56)
[2024-04-20] MEDS: APIXABAN 5 MG TABLET PO SCH (22:56)
[2024-04-20] MEDS: GABAPENTIN 400 MG CAP PO SCH (22:57)
[2024-04-20] MEDS: MELATONIN 3 MG TAB PO STA (23:57)
[2024-04-21 07:14] VITALS: BP 115/76; PULSE 82; TEMP 98.4
[2024-04-21 07:23] LABS: Basophils # (auto) 0.05 K/uL (0.00-0.20); Eosinophils # (auto) 0.26 K/uL (0.00-0.50); Eosinophils % (auto) 5.4 %; Hematocrit (blood only) 33.4 % (37.0-47.0); Hemoglobin 11.4 g/dl (12.0-16.0); Immature Granulocytes # (auto) 0.02 K/uL (0.01-0.20); Immature Granulocytes % (auto) 0.4 %; Lymphocytes # (auto) 0.69 K/uL (1.20-3.40); Lymphocytes % (auto) 14.4 %; Mean Corpuscular Hemoglobin 30.6 pg (25.0-34.0); Mean Corpuscular Hgb Conc 34.1 g/dL (32.0-36.0); Mean Corpuscular Volume 89.8 fL (80.0-100.0); Mean Platelet Volume 9.1 fL (9.4-12.4); Monocytes % (auto) 16.7 %; Neutrophils # (auto) 2.97 K/uL (1.40-6.50); Neutrophils % (auto) 62.1 %; Platelet Count 320 K/uL (130-400); RDW Coefficient of Variation 14.4 % (11.5-14.5); RDW Standard Deviation 46.5 fL (36.4-46.3); Red Blood Count 3.72 M/uL (4.20-5.40); White Blood Count 4.79 K/ul (4.8-10.8)
[2024-04-21] MEDS: METOPROLOL SUCC 50MG EXT REL TAB PO SCH (07:48)
[2024-04-21 07:50] LABS: Albumin Globulin Ratio 1.2 (0.9-2); Albumin Level 3.5 gm/dl (3.4-5.0); Bilirubin,Total 6.4 mg/dl (0.2-1.0); Calcium 9.1 mg/dl (8.6-10.3); Creatinine Clr Calc Pharmacy 55.2 ml/min; Globulin 2.9 gm/dl (2.5-4.0); Potassium 3.4 mmol/L (3.5-5.1); Total Protein 6.4 gm/dl (6.0-8.3)
[2024-04-21 07:55] LABS: INR 0.9 (0.9-1.1); Prothrombin Time 10.3 Seconds (9.0-12.0)
--- NOTE | 2024-04-21 09:34 | Communication Note ---
Date of Service: April 21, 2024 Jaundice, itching AST/ALT/Alk phos roughly peak was 12/9 Bilirubin peak/plateau will lag these Bilirubin decreased overnight (along with WBC, HG, Plt) mostly dilutional effect of IVF -direct bili elevated CT without biliary dilation or gallstones. Cholestatic pattern. Reviewed recent TTE - normal EF, volume status, no tricuspid regurgitation or right heart failure so cardiogenic cause unlikely added ferritin and lipid panel viral studies pending APAP level negative Main suspect DILI or viral She did have courses of acetaminophen and ibuprofen mid-late March which could be the culprits I'm not aware of any antibiotics Reviewed fill history and home meds no other obvious culprits. Metropolol very rare to cause hepatic toxicity, typically only AST/ALT elevation without clinical symptoms presentation of PBC, PSC possible but no known history to support these, would be late presentation, seems unlikely [facility] consulted added additional labs such as RIKI AMA ASMA hepatitis E HSV - drawn, pending She is safe for discharge, has follow up with primary care in four days, would recommend CMP at that time and in 1 week. If not improving in 1 week refer for liver biopsy.
[2024-04-21 10:58] LABS: Ferritin 115.6 ng/ml (8-388)
--- NOTE | 2024-04-21 12:21 | Gastrointestinal Consultation ---
Date of Consultation April 21, 2024 Assessment & Plan (1) Elevated bilirubin: Patient with cholestatic LFTs and normal INR, DDx includes DILI (ABx or NSAIDs) this is not related to Metoprolol, Less likely viral illness but need to r/o EBV/HSV and HEV infections, and less likely late presentation of Ischemic hepatopathy (related to A-FIB). No recent LFTs to compare. Recommend: Obtain RIKI, AMA, ASMA, Ceruloplasmin, Haptoglobin, LDH, Celiac panel, Iron studies and HEV,HSV,EBV titers just to complete the work up. No role for NAC at this point. Avoid Hepatotoxic. Continue Metoprolol. Optimize cardiac output. Normal INR is reassuring. Repeat LFTs in a week, if they remain elevated then she will need Liver biopsy and if proven DILI then would consider Prednisone. Follow up with Hepatology clinic as OP. Recall GI if needed. History of Present Illness Reason for Consultation: Abnormal LFTs Attending Physician: Olena Carty MD History of Present Illness 74 years old female patient with know Atrial fibrillation, had recent rectocele/cystocele repair a month ago, given a dose of Cefoxitin at that time a long with PRN NSAIDs/Tylenol for pain, presented now with jaundice, ? recent viral like illness, has predominantly cholestatic LFTs with normal INR, acute viral screen is negative. She feels fine and denies any symptoms. Urine was dark but is clearing up now. Sono and CT scan with normal Liver, biliary tree, no gallstones and patent vasculature. Cardiology following the patient, currently rate controlled with Metoprolol, also started on AC. Allergies Allergy/AdvReac Type Severity Reaction Status Date / Time No Known Drug Allergies Allergy Verified 04/20/24 18:20 Home Medications Medication Instructions Recorded Confirmed Type calcium carbonate 1,000 mg PO DAILY 08/04/21 04/20/24 History apixaban 5 mg tablet (Eliquis) 5 mg PO BID #60 tabs 04/16/24 04/20/24 Rx gabapentin 100 mg capsule 100 mg PO UD 04/16/24 04/20/24 History metoprolol succinate 50 mg 50 mg PO QAM 30 days #30 tabs 04/16/24 04/20/24 Rx tablet,extended release 24 hr [id number] ac 400 1 tab PO DAILY ##0 04/16/24 04/20/24 History mcg-calcium carb 500 mg-vit K1 20 mcg tablet (Women's 50 Plus Multivitamin) gabapentin 400 mg capsule 400 mg PO UD 04/20/24 04/20/24 History Patient History Medical History Melanoma Bilateral tinnitus Dermatitis, nummular History of angular cheilitis Onychomycosis of toenail Sensorineural hearing loss (SNHL) of both ears Small bowel obstruction (2015) Pneumonia (2014) Surgical History Hx of colonoscopy Hx of tonsillectomy 1955 Family History Father Suicide Mother Parkinsons disease Uterine cancer Dementia Cervix cancer FHx: allergies Brother Myocardial infarction Tobacco abuse Coronary heart disease Heart disease Sister Coronary heart disease Heart disease Uncle Heart disease Denies family history of Ovarian cancer Prostate cancer Breast cancer Colorectal cancer Social History Smoking Status: Never smoker Second Hand Exposure: No; Do You Dip or Chew Tobacco: No; Tobacco Cessation Education Requested by Patient: No Hx Alcohol Use: Yes Alcohol type: beer and wine Alcohol Intake Frequency: 4 or More x per/Week Alcohol Intake Frequency Comment: glass of wine daily or cocktail Hx Substance Use: No Preferred Language: Spanish Communication Ability: Effective Visual Impairment: No Limitations Hearing Ability: Normal Physics Faculty Member Required: No Beliefs That Will Affect Care: None marital status: Current Living Situation: Spouse current occupational status: retired 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 How many Children do You have: 4 Other Information That Helps Us Care for You: No Feels Safe at Home: Yes Safety Concerns: Feels Safe At This Time Childhood Exposure to Second-Hand Smoke: Yes Diet: regular caffeine: Yes during the past year weight has: remained stable Dental Care, Regularly: Yes Physical Activity Frequency: Daily Seatbelt Use: always Sunscreen Use: Yes Review of Systems Review of Systems: All systems reviewed & are unremarkable except as noted in HPI & below Physical Exam Constitutional: comfortable; no acute distress Respiratory: normal respiratory effort, lungs clear to auscultation Cardiovascular: RRR, no murmur, no edema Gastrointestinal (Abdomen): normal bowel sounds, soft, nontender, no hepatosplenomegaly Results & Data Vital Signs (Past 12 Hours) Vital Signs Temp Pulse Resp BP Pulse Ox O2 Del Method 04/21/24 07:12 36.9 C 82 16 115/76 96 Room Air Laboratory Results Laboratory Results - last 24 hr 04/20/24 04/20/24 04/20/24 15:14 15:16 19:27 WBC 6.86 RBC 4.22 Hgb 13.2 Hct 38.3 MCV 90.8 MCH 31.3 MCHC 34.5 RDW Std Deviation 47.3 H RDW Coeff of Kerri 14.2 Plt Count 358 MPV 9.1 L Immature Gran % (Auto) 0.3 Neut % (Auto) 76.8 Lymph % (Auto) 10.2 [place] % (Auto) 9.8 Eos % (Auto) 2.3 Baso % (Auto) 0.6 Neut # (Auto) 5.27 Lymph # (Auto) 0.70 L [place] # (Auto) 0.67 H Eos # (Auto) 0.16 Baso # (Auto) 0.04 Immature Gran # (Auto) 0.02 PT 9.9 INR 0.9 Sodium 135 L Potassium 3.6 Chloride 103 Carbon Dioxide 22 Anion Gap 10 BUN 17 Creatinine 0.72 Est Cr Clr Drug Dosing 60.6 eGFR 87.68 BUN/Creatinine Ratio 23.6 H Glucose 102 H Calcium 9.9 Ferritin Total Bilirubin 7.5 H Direct Bilirubin 5.0 H AST 60 H ALT 115 H Alkaline Phosphatase 309 H Total Protein 7.9 Albumin 4.3 Globulin 3.6 Albumin/Globulin Ratio 1.2 Triglycerides Cholesterol LDL Cholesterol, Calc VLDL Cholesterol, Calc HDL Cholesterol Cholesterol/HDL Ratio Acetaminophen < 3 L CMV IgM Ab CMV IgG Ab/TORCH EBV Capsid Ag IgG Ab Pending EBV Capsid Ag IgM Ab Pending EBV EA Restrict+Diffuse Pending EBV Nuclear Antigen Ab Pending EBV Antibody Interp Pending Hepatitis A IgM Ab Pending Hep Bs Antigen Negative Hep B Core IgM Ab Pending Hepatitis C Antibody Negative Monoscreen Negative 04/21/24 06:54 WBC 4.79 L RBC 3.72 L Hgb 11.4 L Hct 33.4 L MCV 89.8 MCH 30.6 MCHC 34.1 RDW Std Deviation 46.5 H RDW Coeff of Kerri 14.4 Plt Count 320 MPV 9.1 L Immature Gran % (Auto) 0.4 Neut % (Auto) 62.1 Lymph % (Auto) 14.4 [place] % (Auto) 16.7 Eos % (Auto) 5.4 Baso % (Auto) 1.0 Neut # (Auto) 2.97 Lymph # (Auto) 0.69 L [place] # (Auto) 0.80 H Eos # (Auto) 0.26 Baso # (Auto) 0.05 Immature Gran # (Auto) 0.02 PT 10.3 INR 0.9 Sodium 136 Potassium 3.4 L Chloride 107 Carbon Dioxide 20 L Anion Gap 9 BUN 15 Creatinine 0.79 Est Cr Clr Drug Dosing 55.2 eGFR 78.44 BUN/Creatinine Ratio 19.0 Glucose 104 H Calcium 9.1 Ferritin 115.6 Total Bilirubin 6.4 H Direct Bilirubin AST 45 H ALT 84 H Alkaline Phosphatase 268 H Total Protein 6.4 Albumin 3.5 Globulin 2.9 Albumin/Globulin Ratio 1.2 Triglycerides 127 Cholesterol 138 LDL Cholesterol, Calc 76 VLDL Cholesterol, Calc 25 HDL Cholesterol 37 Cholesterol/HDL Ratio 4.0 Acetaminophen CMV IgM Ab Pending CMV IgG Ab/TORCH Pending EBV Capsid Ag IgG Ab EBV Capsid Ag IgM Ab EBV EA Restrict+Diffuse EBV Nuclear Antigen Ab EBV Antibody Interp Hepatitis A IgM Ab Hep Bs Antigen Hep B Core IgM Ab Hepatitis C Antibody Monoscreen
--- NOTE | 2024-04-21 13:06 | Discharge Summary ---
Discharge Summary Date of Service April 21, 2024 Principal Dx & Hospital Course #1 = Principal Diagnosis (1) Hyperbilirubinemia: Suspect drug induced or potentially viral. She stopped Tylenol 1,000mg TID and Ibuprofen 800mg TID approx 1.5 weeks ago. Continue to avoid. GI input appreciated - recommended adding RIKI, AMA, ASMA, Ceruplasmin, Haptoglobin, LDH, Celiac Panel, Iron Studies, HEV, HS, EBV titers to complete the workup. Labs ordered but patient does not need to remain inpatient. She has a follow up appointment with her PCP this week. GI recommends follow up with Hepatology clinic as an outpatient. US and CT without concerning obstructive etiology despite pattern more biliary than intrahepatic appearing No anemia to suggest hemolysis INR and Plt normal. Total Bili 7.8-->7.5-->6.4 AST 63-->60-->45 ALT 128-->115-->84 Alk Phos 324-->309-->268 Reflex EBV and CMV sent. Avoid hepatotoxic medications. Do not restart tylenol or NSAIDs She can continue metoprolol at this time - low concern for it contributing. (2) Transaminitis: As above (3) Paroxysmal A-fib: Currently in NSR Continue metoprolol and Eliquis Plan VTE Prophylaxis - Eliquis Diet - regular Disposition - Discharge to home. Follow up with PCP this week. Repeat labs in 1 week per GI. Admission HPI Per Admitting Provider Lien Marie is a 74 year old female who presents to the ER on advice of her non emergency services ambulance driver due to elevated LFTs. She reports having a generalized respiratory illness starting on Tuesday (April 14) night with body aching, nasal congestion and sneezing. No chest pain, sore throat or shortness of breath. She was seen in the ER on April 16 and diagnosed with new onset paroxysmal atrial fibrillation and converted to NSR while in the ER with metoprolol IV. She was noted to have a mild transaminitis but since since she had not abdominal pain, US was normal and downtrending in the ER and acute hepatitis panel was sent but medicine did not feel she needed to be admitted at that time. She followed up with her non emergency services ambulance driver today with repeat LFTs that appeared to be worse therefore she was sent to the ER for further evaluation. She has stopped taking acetaminophen with last dose on April 14. Before this she was taking 3000mg / day after her operation in March up until about April 11. She is now feeling better from her flu like symptoms and is asymptomatic when seen in the ER other than yellowing of her skin and associated itching from the h yperbilirubinemia. She has no known prior liver problems. Discharge Exam Constitutional WD/WN, vitals as above Eyes PERRL Respiratory normal respiratory effort; no respiratory distress Auscultation: lungs clear to auscultation bilaterally Cardiovascular Rate/Rhythm: regular rate and regular rhythm Gastrointestinal (Abdomen) Inspection/Auscultation: normal bowel sounds Percussion/Palpation: abdomen nontender and no hepatosplenomegaly Skin no rashes, warm and dry Psychiatric Orientation: alert and oriented x 3 Discharge Plan Discharge Items Patient Disposition: Home - Self-Care Reason For Visit: ELEVATEF LFTS Discharge Diagnosis: Elevated Bilirubin/LFTs Activity: Resume your previous activity Non-emergency contact: Primary Care Provider Call non-emergency contact if: you have any medication questions, your symptoms worsen, your pain is concerning for you and your temperature is above 101.5 Follow-up/Referrals: Sancho Jones MD [Primary Care Provider] - 04/26/24 11:00 am Olena Carty MD [Hospitalist] - Diet: Regular Addtl Attending Provider Instructions: Avoid hepatotoxic drugs. Do not take tylenol and ibprofen (NSAIDs) Follow up with your PCP next week You labs will be repeated in 1 week Return with new or worsening symptoms. Pending Studies at Discharge: Yes (Labs) Stand-Alone Forms: [facility] [employer], Smoking Cessation Medications and DC Order Prescriptions: Continued calcium carbonate 500 mg calcium (1,250 mg) tablet 1,000 mg PO DAILY gabapentin 100 mg capsule 100 mg PO UD Rx Instructions: Take 100mg w/ 400mg to equal 500mg at bedtime Women's 50 Plus Multivitamin 400 mcg-500 mg calcium-20 mcg Tablet 1 tab PO DAILY Qty: 0 Eliquis 5 mg tablet 5 mg PO BID Qty: 60 0RF metoprolol succinate 50 mg Tablet Extended Release 24 Hr 50 mg PO QAM 30 Days Qty: 30 0RF gabapentin 400 mg capsule 400 mg PO UD Rx Instructions: Take 400mg w/ 100mg to equal 500mg at bedtime Discharge Orders: Discharge Order (Routine); Ordered 04/21/24 Ordered By: Milli Mayers/Other Patient Handouts: Healthy Kidneys, Kidney Problems, Monitoring Kidney Health Admission Data Admit Date/Time: 04/20/24 20:04 Attending Provider: Olena Carty Admit Provider: Ran Judd Primary Care Provider: Sancho Jones Other Providers: Ran Judd; Aleksandr Salamanca Other Interventions: Discharge Summary Assessment (RN) Last Done: 04/21/24 13:14 Hospital Stay Data Consultations 04/20/24 17:36 ED Decision to Admit Stat 04/20/24 20:04 Consult Gastroenterology Routine Diagnostic Imagining Performed 04/20/24 16:00 CT Abd and Pelvis [CT abd pelvis IV con only] Stat Discharge Instructions Given to Patient (Per Discharging Provider) Avoid hepatotoxic drugs. Do not take tylenol and ibprofen (NSAIDs) Follow up with your PCP next week You labs will be repeated in 1 week Return with new or worsening symptoms. Total Time Total Time Spent Total Time Spent (In Minutes): 30 Coding [place] [address] IN/OBS DISCH 30 MIN/LESS Patient Type Established Medical Decision Making Moderate Complexity Diagnoses Hyperbilirubinemia E80.6 Transaminitis R74.01 Paroxysmal A-fib I48.0
--- NOTE | 2024-04-22 06:02 | Electrocardiogram Report ---
Test Reason : Blood Pressure : */* mmHG Vent. Rate : 72 BPM Atrial Rate : 72 BPM P-R Int : 124 ms QRS Dur : 70 ms QT Int : 378 ms P-R-T Axes : 55 67 9 degrees QTcB Int : 413 ms Normal sinus rhythm Possible Left atrial enlargement Nonspecific T wave abnormality Abnormal ECG When compared with ECG of 16-Apr-2024 10:14, Sinus rhythm has replaced Atrial fibrillation Vent. rate has decreased by [address] no longer depressed in Anterior leads Confirmed by Louie Vargas ([id number]) on 04/22/2024 6:02:36 AM Referred By: Confirmed By: Louie Vargas
[2024-04-22 09:22] LABS: Hepatitis A Antibody IgM NON-REACTIVE (NON-REACTIVE); Hepatitis B Core Antibody IgM NON-REACTIVE (NON-REACTIVE)
[2024-04-23 14:08] LABS: CMV IgG Antibody <0.60 U/mL; CMV IgM Antibody <30.00 AU/mL
[2024-04-23 14:23] LABS: Epstein Barr Virus Early Ag Ab <9.00 U/mL
[2024-05-04 13:17] LABS: Anti Mitochondrial Antibody NEGATIVE (NEGATIVE); Anti Nuclear Antibody Screen POSITIVE (NEGATIVE); Ceruloplasmin 42 mg/dL (14-48); HSV Type 1 DNA Not Detected (Not Detected); HSV Type 1&2 DNA Source Serum; HSV Type 2 DNA Not Detected (Not Detected); Haptoglobin 140 mg/dL (43-212); IgA Serum 267 mg/dL (70-320); Tis Trans IgA <1.0 U/mL
[2024-05-04 15:04] LABS: ANA Pattern Nuclear, Speckled; ANA Pattern 2 Cytoplasmic; ANA Titer > OR = 1:1280 titer
== END 2024-04-21 13:33 | disposition home or self-care (01) | DRG 443 ==
LOC: ED 14:19 → 3W 20:04 → INTOOBSV 20:04 → SUATTDRO 20:04 → 3W 21:19